=== PATIENT | female | born 1990 | race African-American/Black ===

== ENCOUNTER 2017-01-02 02:50 | Emergency (ER) | payer OTHER ==
[~2017-01-02 02:50] MED LIST: AMOXICILLIN500 MG OR; AMOXICILLIN500 MG PO; ATIVAN0.5 MG PO; BACTRIM DS1 TAB PO; CIPRO500 MG OR; CIPROFLOXACN500 MG PO; CLEOCIN300 MG PO; DEPO-PROVER150 MG/M1 IM; DOXYCYC MONO100 MG OR; FLAGYL500 MG OR; LORTAB 5 OR; MUCINEX600 MG PO; MULTIVITAMI1 OR; NAPROSYN500 MG OR; NAPROSYN500 MG PO; NO; PRENATABS OR; TYLENOL325 MG OR; ULTRAM50 M1 PO; ZOFRAN ODT4 MG PO; ZOFRAN4 M1 OR; ZOFRAN4 MG/TAB PO
== END 2017-01-02 03:02 | disposition left against medical advice (07) | DRG 951 ==
LOC: ED 02:50 → LWOBS 03:02
DX: Z91.19 Patient's noncompliance with other medical treatment and regimen (principal)

== ENCOUNTER 2017-01-08 22:52 | Emergency (ER) | payer OTHER ==
[~2017-01-08] VITALS: Ht 157.5 cm; Wt 79.0 kg
[2017-01-09] MEDS ORDERED: ULTRAM50 MG PO (05:13)
[2017-01-09 05:24] VITALS: BP 116/76
== END 2017-01-09 05:24 | disposition home or self-care (01) | DRG 556 ==
LOC: ED 22:52
DX: M25.542 Pain in joints of left hand (principal); F17.210 Nicotine dependence, cigarettes, uncomplicated; M25.541 Pain in joints of right hand; M25.572 Pain in left ankle and joints of left foot; M25.571 Pain in right ankle and joints of right foot; M54.6 Pain in thoracic spine; M79.1 Myalgia

== ENCOUNTER 2017-01-22 00:21 | Emergency (ER) | payer OTHER ==
[~2017-01-22] VITALS: Ht 157.5 cm; Wt 79.0 kg
[~2017-01-22 00:21] MED LIST changes: +ULTRAM50 MG PO
[2017-01-22] MEDS ORDERED: ATIVAN1 M1 PO (01:23)
[2017-01-22 02:00] VITALS: BP 128/85
== END 2017-01-22 02:06 | disposition home or self-care (01) | DRG 880 ==
LOC: ED 00:21
DX: F43.0 Acute stress reaction (principal); F17.210 Nicotine dependence, cigarettes, uncomplicated

== ENCOUNTER 2017-02-21 03:56 | Emergency (ER) | payer OTHER ==
[~2017-02-21] VITALS: Ht 157.5 cm; Wt 78.6 kg
[~2017-02-21 03:56] MED LIST changes: +ATIVAN1 M1 PO
[2017-02-21 05:16] LABS: HEMATOCRIT 40.2 % (37.0-47.0); HEMOGLOBIN 13.5 g/dl (12.0-16.0); IMMATURE GRANULOCYTES 0.2 % (0.0-1.0); MEAN CELL VOLUME 83.4 fL CALC (80.0-100.0); MEAN CORPUSCULAR HGB CONC 33.6 g/L CALC (32.0-36.0); NEUT# 6.32 thou/uL (2.00-7.15); RED BLOOD COUNT 4.82 mill/uL (4.20-5.60); RED CELL DISTRI WIDTH 13.9 % (11.5-15.5)
[2017-02-21 05:49] LABS: ALBUMIN 4.2 g/dL (3.2-5.0); ALKALINE PHOSPHATASE 67 u/l (38-126); ANION GAP 19 (6-22 (CALC)); BILIRUBIN, TOTAL 0.5 mg/dL (0.0-1.4); BUN 9 mg/dL (7-17); BUN/CREATININE RATIO 12 (12-20 (CALC)); CALCIUM 9.5 mg/dL (8.4-10.2); CARBON DIOXIDE 20 mmol/l (22-30); CHLORIDE 107 mmol/l (95-108); CREATININE 0.7 mg/dL (0.5-1.0); GFR > 60 ML/MIN (>=60 (CALC)); GFR FOR AFR.AMER. > 60 ML/MIN (>=60 (CALC)); GLUCOSE 83 mg/dL (65-105); POTASSIUM 4.8 mmol/l (3.5-5.1); SGOT/AST 28 u/l (14-36); SGPT/ALT 38 u/l (9-52); SODIUM 141 mmol/l (137-146); TOTAL PROTEIN 7.4 g/dL (6.3-8.2)
[2017-02-21 06:50] VITALS: BP 124/81
== END 2017-02-21 06:50 | disposition home or self-care (01) | DRG 556 ==
LOC: ED 03:56
PROVIDERS: Emergency Medicine
DX: M79.1 Myalgia (principal)

== ENCOUNTER 2017-07-29 17:38 | Emergency (ER) | payer OTHER ==
[~2017-07-29] VITALS: Ht 157.5 cm; Wt 70.0 kg
[2017-07-29] MEDS ORDERED: LYRICA20 MG/ML PO (18:21)
[2017-07-29] MEDS ORDERED: LYRICA25 MG PO (18:22)
[2017-07-29] MEDS ORDERED: FOLIC ACID1 MG PO (18:22)
[2017-07-29] MEDS ORDERED: METHOTREXATE2.5 MG PO (18:24)
[2017-07-29 18:57] LABS: HEMATOCRIT 39.3 % (37.0-47.0); HEMOGLOBIN 12.9 g/dl (12.0-16.0); IMMATURE GRANULOCYTES 0.4 % (0.0-1.0); MEAN CELL VOLUME 89.1 fL CALC (80.0-100.0); MEAN CORPUSCULAR HGB 29.3 pG CALC (26.0-32.0); MEAN CORPUSCULAR HGB CONC 32.8 g/L CALC (32.0-36.0); NEUT# 13.36 thou/uL (2.00-7.15); RED BLOOD COUNT 4.41 mill/uL (4.20-5.60); RED CELL DISTRI WIDTH 14.5 % (11.5-15.5)
[2017-07-29 19:02] LABS: ALBUMIN 4.6 g/dL (3.2-5.0); ALKALINE PHOSPHATASE 74 u/l (38-126); ANION GAP 16 (6-22 (CALC)); BILIRUBIN, TOTAL 0.4 mg/dL (0.0-1.4); BUN 9 mg/dL (7-17); BUN/CREATININE RATIO 13 (12-20 (CALC)); CALCIUM 9.8 mg/dL (8.4-10.2); CARBON DIOXIDE 22 mmol/l (22-30); CHLORIDE 106 mmol/l (95-108); CREATININE 0.7 mg/dL (0.5-1.0); GFR > 60 ML/MIN (>=60 (CALC)); GFR FOR AFR.AMER. > 60 ML/MIN (>=60 (CALC)); GLUCOSE 93 mg/dL (65-105); POTASSIUM 3.9 mmol/l (3.5-5.1); SGOT/AST 68 u/l (14-36); SGPT/ALT 51 u/l (9-52); SODIUM 141 mmol/l (137-146); TOTAL PROTEIN 7.8 g/dL (6.3-8.2)
[2017-07-29 19:11] LABS: MYOGLOBIN 14 ng/mL (0 - 62)
[2017-07-29 20:03] VITALS: BP 124/80
== END 2017-07-29 19:50 | disposition left against medical advice (07) | DRG 313 ==
LOC: ED 17:38
PROVIDERS: Emergency Medicine
DX: R07.89 Other chest pain (principal); F41.9 Anxiety disorder, unspecified; F17.210 Nicotine dependence, cigarettes, uncomplicated; M06.9 Rheumatoid arthritis, unspecified; M79.7 Fibromyalgia; Z91.19 Patient's noncompliance with other medical treatment and regimen
CPT/HCPCS: S0164

== ENCOUNTER 2019-02-22 09:07 | Emergency (ER) | payer OTHER ==
[~2019-02-22] VITALS: Ht 157.5 cm; Wt 80.0 kg
[~2019-02-22 09:07] MED LIST changes: +FOLIC ACID1 MG PO; +LYRICA20 MG/ML PO; +LYRICA25 MG PO; +METHOTREXATE2.5 MG PO
[2019-02-22 10:02] LABS: HEMATOCRIT 37.4 % (37.0-47.0); HEMOGLOBIN 12.2 g/dl (12.0-16.0); IMMATURE GRANULOCYTES 0.3 % (0.0-5.0); MEAN CELL VOLUME 86.4 fL CALC (80.0-100.0); MEAN CORPUSCULAR HGB 28.2 pG CALC (26.0-32.0); MEAN CORPUSCULAR HGB CONC 32.6 g/L CALC (32.0-36.0); NEUT# 6.91 thou/uL (2.00-7.15); RED BLOOD COUNT 4.33 mill/uL (4.20-5.60); RED CELL DISTRI WIDTH 13.2 % (11.5-15.5)
[2019-02-22 10:20] LABS: BUN 4 mg/dL (7-17); BUN/CREATININE RATIO 7 (12-20 (CALC)); CARBON DIOXIDE 21 mmol/l (22-30); CHLORIDE 107 mmol/l (95-108); CREATININE 0.6 mg/dL (0.5-1.0); GFR > 60 ML/MIN (>=60 (CALC)); GFR FOR AFR.AMER. > 60 ML/MIN (>=60 (CALC)); SODIUM 137 mmol/l (137-146)
[2019-02-22 10:23] LABS: ANION GAP 12 (6-22 (CALC)); POTASSIUM 3.3 mmol/l (3.5-5.1)
[2019-02-22] MEDS ORDERED: PENICILLN VK500 MG PO (11:23)
[2019-02-22 11:26] VITALS: BP 132/97
== END 2019-02-22 11:25 | disposition home or self-care (01) ==
LOC: ED 09:07
PROVIDERS: Family Medicine
DX: I88.9 Nonspecific lymphadenitis, unspecified (principal); F17.200 Nicotine dependence, unspecified, uncomplicated; J02.9 Acute pharyngitis, unspecified; R68.84 Jaw pain
CPT/HCPCS: Q9967

== ENCOUNTER 2019-03-29 17:58 | Emergency (ER) | payer OTHER ==
[~2019-03-29] VITALS: Ht 157.5 cm; Wt 68.2 kg
[~2019-03-29 17:58] MED LIST changes: +PENICILLN VK500 MG PO
[2019-03-29] MEDS ORDERED: LYRICA150 M1 PO (18:12)
[2019-03-29] MEDS ORDERED: TRAMADOL HCL50 MG PO (18:51)
[2019-03-29] MEDS ORDERED: VOLTAREN - GENE75 MG PO (18:51)
[2019-03-29 19:20] VITALS: BP 139/74
== END 2019-03-29 19:20 | disposition home or self-care (01) | DRG 556 ==
LOC: ED 17:58
DX: M25.512 Pain in left shoulder (principal); S70.02XA Contusion of left hip, initial encounter; S40.012A Contusion of left shoulder, initial encounter; L25.9 Unspecified contact dermatitis, unspecified cause; V49.59XA Passenger injured in collision with other motor vehicles in traffic accident, initial encounter; Y92.414 Local residential or business street as the place of occurrence of the external cause; F17.210 Nicotine dependence, cigarettes, uncomplicated

== ENCOUNTER 2020-05-17 20:11 | Emergency (ER) | payer OTHER ==
[~2020-05-17] VITALS: Ht 157.5 cm; Wt 76.0 kg
[~2020-05-17 20:11] MED LIST changes: +LYRICA150 M1 PO; +TRAMADOL HCL50 MG PO; +VOLTAREN - GENE75 MG PO
[2020-05-17 21:03] LABS: HEMATOCRIT 38.5 % (37.0-47.0); HEMOGLOBIN 12.5 g/dl (12.0-16.0); IMMATURE GRANULOCYTES 0.4 % (0.0-5.0); MEAN CELL VOLUME 84.8 fL CALC (80.0-100.0); MEAN CORPUSCULAR HGB 27.5 pG CALC (26.0-32.0); MEAN CORPUSCULAR HGB CONC 32.5 g/dL CAL (32.0-36.0); NEUT# 7.59 thou/uL (2.00-7.15); RED BLOOD COUNT 4.54 mill/uL (4.20-5.60); RED CELL DISTRI WIDTH 14.1 % (11.5-15.5)
[2020-05-17 21:50] VITALS: BP 135/78
[2020-05-17 21:59] LABS: URINE BILIRUBIN - DIPSTICK NEGATIVE (NEGATIVE); URINE BLOOD DIPSTICK TRACE-INTACT (NEGATIVE); URINE COLOR YELLOW; URINE GLUCOSE - DIPSTICK NEGATIVE (NEGATIVE); URINE KETONE NEGATIVE (NEGATIVE); URINE LEUK ESTERASE TRACE (NEGATIVE); URINE NITRITE - DIPSTICK NEGATIVE (Negative); URINE PROTEIN - DIPSTICK NEGATIVE (NEG-TRACE); URINE UROBILINOGEN - DIPSTICK 0.2 E.U./dL (0.2)
[2020-05-17 22:01] LABS: ALKALINE PHOSPHATASE 68 u/l (38-126); ANION GAP 11 (6-22 (CALC)); BUN 4 mg/dL (7-17); BUN/CREATININE RATIO 6 (12-20 (CALC)); CARBON DIOXIDE 24 mmol/l (22-30); CHLORIDE 105 mmol/l (95-108); CREATININE 0.7 mg/dL (0.5-1.0); GFR > 60 ML/MIN (>=60 (CALC)); GFR FOR AFR.AMER. > 60 ML/MIN (>=60 (CALC)); POTASSIUM 3.6 mmol/l (3.5-5.1); SGOT/AST 35 u/l (14-36); SODIUM 136 mmol/l (137-146); TOTAL PROTEIN 6.6 g/dL (6.3-8.2)
[2020-05-17 22:03] LABS: BILIRUBIN, TOTAL 0.3 mg/dL (0.0-1.4)
[2020-05-17] MEDS ORDERED: LISINOP/HCTZ1 TAB PO (22:50)
== END 2020-05-17 23:16 | disposition home or self-care (01) ==
LOC: ED 20:11
PROVIDERS: Family Medicine
DX: I10 Essential (primary) hypertension (principal); F17.210 Nicotine dependence, cigarettes, uncomplicated; Z82.49 Family history of ischemic heart disease and other diseases of the circulatory system

== ENCOUNTER 2020-12-17 08:07 | Emergency (ER) | payer OTHER ==
[~2020-12-17] VITALS: Ht 157.5 cm; Wt 68.2 kg
[~2020-12-17 08:07] MED LIST changes: +LISINOP/HCTZ1 TAB PO
[2020-12-17 08:35] LABS: HEMATOCRIT 38.5 % (37.0-47.0); HEMOGLOBIN 12.3 g/dl (12.0-16.0); IMMATURE GRANULOCYTES 0.4 % (0.0-5.0); MEAN CELL VOLUME 86.7 fL CALC (80.0-100.0); MEAN CORPUSCULAR HGB 27.7 pG CALC (26.0-32.0); MEAN CORPUSCULAR HGB CONC 31.9 g/dL CAL (32.0-36.0); NEUT# 10.07 thou/uL (2.00-7.15); RED BLOOD COUNT 4.44 mill/uL (4.20-5.60); RED CELL DISTRI WIDTH 15.1 % (11.5-15.5)
[2020-12-17 08:55] LABS: ANION GAP 12 (6-22 (CALC)); BUN 4 mg/dL (7-17); BUN/CREATININE RATIO 6 (12-20 (CALC)); CARBON DIOXIDE 23 mmol/l (22-30); CHLORIDE 107 mmol/l (95-108); CREATININE 0.7 mg/dL (0.5-1.0); GFR > 60 ML/MIN (>=60 (CALC)); GFR FOR AFR.AMER. > 60 ML/MIN (>=60 (CALC)); POTASSIUM 3.1 mmol/l (3.5-5.1); SODIUM 139 mmol/l (137-146)
[2020-12-17 10:22] VITALS: BP 155/88
[2020-12-17] MEDS ORDERED: K-TAB20 MEQ PO (10:28)
== END 2020-12-17 10:32 | disposition home or self-care (01) ==
LOC: ED 08:07
PROVIDERS: Family Medicine
DX: R07.9 Chest pain, unspecified (principal); J06.9 Acute upper respiratory infection, unspecified; I10 Essential (primary) hypertension; E66.3 Overweight; M06.9 Rheumatoid arthritis, unspecified; F17.200 Nicotine dependence, unspecified, uncomplicated; Z20.822 Contact with and (suspected) exposure to COVID-19

== ENCOUNTER 2021-10-15 17:36 | Emergency (ER) | payer OTHER ==
[~2021-10-15] VITALS: Ht 160 cm; Wt 76.8 kg
[~2021-10-15 17:36] MED LIST changes: +BL IBUPROFEN200 MG PO; +K-TAB20 MEQ PO; +LYRICA50 MG PO
[2021-10-15 19:25] VITALS: BP 147/97
== END 2021-10-15 19:25 | disposition home or self-care (01) ==
LOC: ED 17:36
DX: B34.9 Viral infection, unspecified (principal); M06.9 Rheumatoid arthritis, unspecified; F17.210 Nicotine dependence, cigarettes, uncomplicated; Z20.822 Contact with and (suspected) exposure to COVID-19

== ENCOUNTER 2021-11-13 08:04 | Day surgery (SDC) | payer OTHER ==
[~2021-11-13] VITALS: Ht 160 cm; Wt 72.6 kg
[~2021-11-13 08:04] MED LIST changes: +[UNRECOGNIZED DRUG - OTHER] PO
[2021-11-13] MEDS ORDERED: DEPO-PROVER150 MG/ML IM (08:27)
[2021-11-13] MEDS ORDERED: PERCOCET 5/321 COMBO PO (10:43)
[2021-11-13 12:51] VITALS: BP 139/84
[2021-11-13] MEDS ORDERED: ZPAK PO (18:39)
== END 2021-11-13 12:50 | disposition home or self-care (01) ==
LOC: ORM 08:04
PROVIDERS: ATTEND Surgery
DX: T85.628A Displacement of other specified internal prosthetic devices, implants and grafts, initial encounter (principal); M06.9 Rheumatoid arthritis, unspecified; Y83.1 Surgical operation with implant of artificial internal device as the cause of abnormal reaction of the patient, or of later complication, without mention of misadventure at the time of the procedure; R10.9 Unspecified abdominal pain; R10.10 Upper abdominal pain, unspecified; G89.18 Other acute postprocedural pain; J95.89 Other postprocedural complications and disorders of respiratory system, not elsewhere classified; J18.9 Pneumonia, unspecified organism; Y83.8 Other surgical procedures as the cause of abnormal reaction of the patient, or of later complication, without mention of misadventure at the time of the procedure; F17.200 Nicotine dependence, unspecified, uncomplicated
CPT/HCPCS: J0131; J1100

== ENCOUNTER 2021-11-13 15:47 | Emergency (ER) | payer OTHER ==
[~2021-11-13] VITALS: Ht 160 cm; Wt 68.0 kg
[~2021-11-13 15:47] MED LIST changes: +DEPO-PROVER150 MG/ML IM; +PERCOCET 5/321 COMBO PO
[2021-11-13 16:24] LABS: HEMATOCRIT 37.4 % (37.0-47.0); HEMOGLOBIN 12.1 g/dl (12.0-16.0); IMMATURE GRANULOCYTES 0.2 % (0.0-5.0); MEAN CELL VOLUME 85.8 fL CALC (80.0-100.0); MEAN CORPUSCULAR HGB 27.8 pG CALC (26.0-32.0); MEAN CORPUSCULAR HGB CONC 32.4 g/dL CAL (32.0-36.0); NEUT# 16.31 thou/uL (2.00-7.15); RED BLOOD COUNT 4.36 mill/uL (4.20-5.60)
[2021-11-13 16:33] LABS: ALKALINE PHOSPHATASE 62 u/l (38-126); AMYLASE 136 u/l (30-110); ANION GAP 11 (6-22 (CALC)); BILIRUBIN, TOTAL 0.3 mg/dL (0.0-1.4); BUN 5 mg/dL (7-17); BUN/CREATININE RATIO 7 (12-20 (CALC)); CARBON DIOXIDE 22 mmol/l (22-30); CHLORIDE 107 mmol/l (95-108); CREATININE 0.6 mg/dL (0.5-1.0); GFR > 60 ML/MIN (>=60 (CALC)); GFR FOR AFR.AMER. > 60 ML/MIN (>=60 (CALC)); LIPASE 348 u/l (23-300); POTASSIUM 3.6 mmol/l (3.5-5.1); SODIUM 137 mmol/l (137-146)
[2021-11-13 16:44] LABS: SGOT/AST 39 u/l (14-36)
[2021-11-13] MEDS ORDERED: ZPAK PO (18:39)
[2021-11-13 19:43] VITALS: BP 139/85
== END 2021-11-13 19:50 | disposition home or self-care (01) ==
LOC: ED 15:47
DX: G89.18 Other acute postprocedural pain (principal); J95.89 Other postprocedural complications and disorders of respiratory system, not elsewhere classified; J18.9 Pneumonia, unspecified organism; Y83.8 Other surgical procedures as the cause of abnormal reaction of the patient, or of later complication, without mention of misadventure at the time of the procedure; F17.200 Nicotine dependence, unspecified, uncomplicated; M06.9 Rheumatoid arthritis, unspecified
CPT/HCPCS: Q9967

== ENCOUNTER 2022-07-07 13:36 | Emergency (ER) | payer OTHER ==
[~2022-07-07] VITALS: Ht 160 cm; Wt 70.4 kg
[~2022-07-07 13:36] MED LIST changes: +PERCOCET 5/325M1 TAB PO; +ZPAK PO
[2022-07-07 13:41] VITALS: BP 180/100
[2022-07-07 14:00] VITALS: BP 158/111
[2022-07-07 14:18] LABS: URINE BLOOD DIPSTICK TRACE-INTACT (NEGATIVE); URINE COLOR ORANGE; URINE GLUCOSE - DIPSTICK NEGATIVE (NEGATIVE); URINE KETONE 15 mg/dL (NEGATIVE); URINE LEUK ESTERASE NEGATIVE (NEGATIVE); URINE PROTEIN - DIPSTICK 100 mg/dL (NEG-TRACE); URINE SPECIFIC GRAVITY >=1.030
[2022-07-07 14:23] LABS: URINE BILIRUBIN - DIPSTICK SMALL (NEGATIVE)
[2022-07-07 14:24] LABS: URINE NITRITE - DIPSTICK NEGATIVE (Negative); URINE RBC 0-2 RBC/hpf (0-5)
[2022-07-07 14:25] LABS: URINE EPITHELIAL CELLS MODERATE EPI/hpf (0-FEW); URINE MUCUS FEW hpf (NONE-FEW)
[2022-07-07 14:30] VITALS: BP 147/108
[2022-07-07 15:00] VITALS: BP 132/103
[2022-07-07 15:04] VITALS: BP 140/101
[2022-07-07] MEDS ORDERED: NAPROXEN500 MG PO (18:23)
[2022-07-07] MEDS ORDERED: HYDROCO/APAP1 TA9 PO (18:23)
[2022-07-07 18:29] VITALS: BP 140/101
== END 2022-07-07 18:34 | disposition home or self-care (01) | DRG 87 ==
LOC: ED 13:36
PROVIDERS: Nurse Practitioner
DX: S06.9X1A Unspecified intracranial injury with loss of consciousness of 30 minutes or less, initial encounter (principal); M25.562 Pain in left knee; M25.561 Pain in right knee; M25.532 Pain in left wrist; M54.2 Cervicalgia; I10 Essential (primary) hypertension; M06.9 Rheumatoid arthritis, unspecified; F17.210 Nicotine dependence, cigarettes, uncomplicated; V43.52XA Car driver injured in collision with other type car in traffic accident, initial encounter

== ENCOUNTER 2022-11-30 12:30 | Emergency (ER) | payer OTHER ==
[~2022-11-30] VITALS: Ht 160 cm; Wt 68.2 kg
[~2022-11-30 12:30] MED LIST changes: +HYDROCO/APAP1 TA9 PO; +NAPROXEN500 MG PO
[2022-11-30 15:29] VITALS: BP 142/101
[2022-11-30 15:30] VITALS: BP 139/100
[2022-11-30] MEDS ORDERED: NAPROXEN500 MG PO (15:32)
[2022-11-30] MEDS ORDERED: IBUPROFEN600 MG PO (15:49)
[2022-11-30 16:00] VITALS: BP 139/100
== END 2022-11-30 16:01 | disposition home or self-care (01) ==
LOC: ED 12:30
DX: S43.402A Unspecified sprain of left shoulder joint, initial encounter (principal); I10 Essential (primary) hypertension; M06.9 Rheumatoid arthritis, unspecified; F17.210 Nicotine dependence, cigarettes, uncomplicated; V49.50XA Passenger injured in collision with unspecified motor vehicles in traffic accident, initial encounter

== ENCOUNTER 2023-03-26 11:11 | Emergency (ER) | payer OTHER ==
[~2023-03-26] VITALS: Ht 160 cm; Wt 71.6 kg
[2023-03-26] VITALS (8 sets, daily range): BP systolic 118–132; BP diastolic 81–103
[~2023-03-26 11:11] MED LIST changes: +IBUPROFEN600 MG PO
[2023-03-26] MEDS ORDERED: AMOX/K CLAV875 M1 PO (12:52)
[2023-03-26] MEDS ORDERED: ALLERGY RE50 MCG/ACT (12:52)
[2023-03-26] MEDS ORDERED: ZYRTEC10 MG PO (12:52)
== END 2023-03-26 13:12 | disposition home or self-care (01) ==
LOC: ED 11:11
DX: H66.93 Otitis media, unspecified, bilateral (principal); J32.9 Chronic sinusitis, unspecified; I10 Essential (primary) hypertension; M06.9 Rheumatoid arthritis, unspecified; F17.200 Nicotine dependence, unspecified, uncomplicated; Z20.822 Contact with and (suspected) exposure to COVID-19

== ENCOUNTER 2023-05-17 04:07 | Emergency (ER) | payer OTHER ==
[~2023-05-17] VITALS: Ht 160 cm; Wt 68.0 kg
[~2023-05-17 04:07] MED LIST changes: +ALLERGY RE50 MCG/ACT; +AMOX/K CLAV875 M1 PO; +ZYRTEC10 MG PO
[2023-05-17 04:12] VITALS: BP 125/89
[2023-05-17] MEDS ORDERED: COZAAR50 MG PO (04:25)
[2023-05-17 04:55] VITALS: BP 125/89
== END 2023-05-17 04:55 | disposition home or self-care (01) ==
LOC: ED 04:07
DX: S92.515A Nondisplaced fracture of proximal phalanx of left lesser toe(s), initial encounter for closed fracture (principal); I10 Essential (primary) hypertension; M06.9 Rheumatoid arthritis, unspecified; F17.200 Nicotine dependence, unspecified, uncomplicated; W22.09XA Striking against other stationary object, initial encounter

== ENCOUNTER 2023-10-25 07:00 | Day surgery (SDC) | payer OTHER ==
[~2023-10-25] VITALS: Ht 160 cm; Wt 67.6 kg
[~2023-10-25 07:00] MED LIST changes: +ACETAMINOPHEN325 MG PO; +ALEVE220 M2 PO; +COZAAR50 MG PO; +NORVASC10 M1 PO
[2023-10-25 09:07] VITALS: BP 127/91
== END 2023-10-25 09:20 | disposition home or self-care (01) ==
LOC: ENDO 07:00 → ORM 08:30 → ENDO 09:20 → ORM 16:45
PROVIDERS: ATTEND Internal Medicine Gastroenterology
DX: K29.50 Unspecified chronic gastritis without bleeding (principal); B96.81 Helicobacter pylori [H. pylori] as the cause of diseases classified elsewhere

== ENCOUNTER 2024-07-21 05:25 | Emergency (ER) | payer OTHER ==
[~2024-07-21] VITALS: Ht 160 cm; Wt 68.0 kg
[2024-07-21] MEDS ORDERED: KETOROLAC TROMETHAMINE 15 MG/ML SDV IV ONE (05:45)
[2024-07-21] MEDS ORDERED: HYDROcodone 5 MG/Acetaminophen 325 MG/COMBO PO ONE (05:45)
[2024-07-21] MEDS ORDERED: CLINDAMYCIN PHOSPHATE 50 ML IV ONE (05:45)
[2024-07-21] MEDS ORDERED: PENICILLIN V P500 MG PO (05:54)
[2024-07-21] MEDS ORDERED: METOPROLOL TART50 MG PO (05:54)
[2024-07-21 06:18] VITALS: BP 137/91
== END 2024-07-21 06:24 | disposition home or self-care (01) ==
LOC: ED 05:25
DX: K02.9 Dental caries, unspecified (principal); I10 Essential (primary) hypertension; M06.9 Rheumatoid arthritis, unspecified; F17.200 Nicotine dependence, unspecified, uncomplicated; T46.1X6A Underdosing of calcium-channel blockers, initial encounter; Z91.128 Patient's intentional underdosing of medication regimen for other reason
CPT/HCPCS: J0736

== ENCOUNTER 2024-11-04 14:16 | Emergency (ER) | payer OTHER ==
[~2024-11-04] VITALS: Ht 160 cm; Wt 87.0 kg
[~2024-11-04 14:16] MED LIST changes: +METOPROLOL TART50 MG PO; +PENICILLIN V P500 MG PO
[2024-11-04 14:34] VITALS: BP 141/101
[2024-11-04] MEDS ORDERED: TRAMADOL HYDROC50 M1 PO (14:40)
[2024-11-04] MEDS ORDERED: AMOXICILLIN500 M2 PO (14:40)
[2024-11-04] MEDS ORDERED: KETOROLAC TROMETHAMINE 30 MG/ML SDV IM ONE (15:05)
[2024-11-04 15:31] LABS: BASO% 0.6 % (0-3); EOS% 2.1 % (0-8); HEMATOCRIT 38.3 % (37.0-47.0); HEMOGLOBIN 12.8 g/dl (12.0-16.0); IMMATURE GRANULOCYTES 0.3 % (0.0-5.0); LYMPH% 30.4 % (15-41); MEAN CELL VOLUME 85.5 fL CALC (80.0-100.0); MEAN CORPUSCULAR HGB 28.6 pG CALC (26.0-32.0); MEAN CORPUSCULAR HGB CONC 33.4 g/dL CAL (32.0-36.0); MONO% 9.4 % (2-13); NEUT# 6.14 thou/uL (2.00-7.15); NEUT% 57.2 % (42-76); RED BLOOD COUNT 4.48 mill/uL (4.20-5.60); RED CELL DISTRI WIDTH 14.3 % (11.5-15.5)
[2024-11-04 15:43] LABS: CREATININE 0.6 mg/dL (0.5-1.0); POTASSIUM 3.6 mmol/l (3.5-5.1)
[2024-11-04 16:43] VITALS: BP 141/101
== END 2024-11-04 16:47 | disposition home or self-care (01) ==
LOC: ED 14:16
PROVIDERS: Family Medicine
DX: F17.200 Nicotine dependence, unspecified, uncomplicated (principal); M25.551 Pain in right hip; K02.9 Dental caries, unspecified